=== PATIENT | male | born 1970 | race Caucasian/White ===

== ENCOUNTER 2019-06-04 00:22 | Emergency (ER) | payer OTHER ==
[2019-06-04] MEDS ORDERED: Cyclobenzaprine 10 MG TAB ONE (00:46)
[2019-06-04] MEDS ORDERED: Morphine 4 MG/ML VIAL ONE (00:46)
== END 2019-06-04 01:10 | disposition home or self-care (01) ==
LOC: SCSER 00:22
DX: M54.42 Lumbago with sciatica, left side (principal)
CPT/HCPCS: 96372; 99283; J2270

== ENCOUNTER 2019-06-09 08:33 | Outpatient (CLI) | payer OTHER ==
--- NOTE | 2019-06-09 09:29 | MRI ---
MRI Lumbar Spine Noncontrast: HISTORY: Lumbar radiculopathy. Patient complains of low back pain with pain radiating down left leg. Symptoms of been present for one week. COMPARISON: None FINDINGS: The visualized retroperitoneal structures demonstrate a normal appearance. Conus medullaris is normal in morphology and terminates at the T12-L1 level. A subcentimeter rounded focus of increased T1 and T2-weighted signal intensity seen in the T12 verteb ral body likely due to a small hemangioma. L1-2: There is loss of intervertebral disc height. Broad-based disc osteophyte complex is present wit h mild facet hypertrophic changes. There is mild effacement of the anterior aspect of thecal sac. The neural foramina are patent. L2-3: There is loss of intervertebral disc height. Endplate degenerative changes are present at this level. A broad-based disc osteophyte complex is present with mild facet degenerative changes. There is mild generalized narrowing of the central spinal canal with mild left-sided neural foraminal narro wing. The right neural foramen is patent. L3-4: There is a broad-based disc osteophyte complex and mild facet degenerative changes. Findings re sult in mild generalized narrowing of the central spinal canal. No significant neural foraminal narrowing is present. L4-5: There is mild loss of intervertebral disc height. There is a broad-based disc osteophyte comple x with a left central and paracentral disc extrusion. Disc material is seen posterior to the superior endplate of the L5 vertebral body. There is [id number] narrowing of the central spinal canal with narrowing of the left lateral recess. This extrusion results in prominent mass effect on the left anterolateral aspect of the thecal sac and also results in mass effect on the traversing left L5 nerve root within the subarticular zone. Mild bilateral neural foraminal narrowing is present. L5-S1: There is loss of intervertebral disc height. There is a broad-based disc osteophyte complex pr esent. No significant narrowing of the central spinal canal, but there is moderate right and mild to moderate left-sided neural foraminal narrowing primarily related to bony encroachment due to facet degenerative changes especially on the right. IMPRESSION: Multilevel degenerative changes in the lumbar spine greatest at the L4-5 level where there is a broad -based disc osteophyte complex with superimposed central and left paracentral disc extrusion with disc material seen posterior to the L5 vertebral body in the subarticular zone on the left. This does result in mass effect on the traversing left L5 nerve root. Correlation for left L5 radiculopathy is suggested.
== END 2019-06-09 08:34 | disposition home or self-care (01) ==
LOC: MRI 08:33
PROVIDERS: ATTEND Neurological Surgery
DX: M47.26 Other spondylosis with radiculopathy, lumbar region (principal); M25.78 Osteophyte, vertebrae; M51.16 Intervertebral disc disorders with radiculopathy, lumbar region
CPT/HCPCS: 72148

== ENCOUNTER 2019-06-16 17:35 | Emergency (ER) | payer OTHER ==
[2019-06-16] MEDS ORDERED: Ibuprofen 200 MG TAB ONE (17:59)
[2019-06-16 18:10] LABS: #Basophils 0.1 thou/uL (0.0-0.2); #Eosinphils 0.1 thou/uL (0.0-0.7); #Lymphocytes 1.9 thou/uL (1.20-3.40); #Monocytes 0.7 thou/uL (0.11-0.59); #Neutrophils 4.5 thou/uL (1.40-6.50); %Basophils 0.9 % (0.0-1.0); %Eosinophils 1.5 % (0.0-10.0); %Lymphocytes 26.2 % (21.0-51.0); %Monocytes 9.7 % (0.0-10.0); %Neutrophils 61.8 % (42.0-75.0); Hemoglobin 15.6 g/dL (14.0-18.0); Mean Corpuscular HGB CONC 34.1 g/dL (32.0-36.0); Mean Corpuscular Hemoglobin 30.7 pg (27.0-31.0); Mean Corpuscular Volume 89.9 fL (78.0-98.0); Mean Platelet Volume 7.7 fL (7.4-10.4); Platelet Count 263 thou/uL (130-400); RBC Distribution Width 12.2 % (11.5-14.5); Red Blood Cell (RBC) Count 5.09 mill/uL (4.70-6.10); White Blood Cell (WBC) Count 7.4 thou/uL (4.8-10.8)
[2019-06-16 18:30] LABS: ALT (SGPT) 19 U/L (8-55); AST (SGOT) 23 U/L (5-34); Albumin 4.4 g/dL (3.5-5.0); Alkaline Phosphatase 63 U/L (40-110); Anion Gap 13 mmol/L (10-20); BUN (Urea Nitrogen) 19 mg/dL (8.9-20.6); Bilirubin, Total 0.6 mg/dL (0.2-1.2); Calc. Creatinine Clearance 0 mL/min (70-130); Calcium 9.6 mg/dL (7.8-10.44); Carbon Dioxide 30 mmol/L (22-29); Chloride 102 mmol/L (98-107); Estimated GFR-MDRD 80; Globulin 2.8 g/dL (2.4-3.5); Glucose 97 mg/dL (70-105); Potassium 4.8 mmol/L (3.5-5.1); Protein, Total 7.2 g/dL (6.0-8.3); Sodium 140 mmol/L (136-145)
--- NOTE | 2019-06-16 18:44 | ULT ---
US Venous Doppler Lt Unilat History: Pain and edema Comparison: None. Findings: Real-time grayscale, color, and spectral analysis of the left lower extremity venous system was performed. The common femoral, femoral, proximal portions greater saphenous and deep femoral veins as well as the popliteal and posterior tibial veins were interrogated. Normal flow, augmentation, and compression. Impression: No deep venous thrombosis.
[2019-06-16 19:02] LABS: Bilirubin Negative (Negative); Blood, Urine Negative (Negative); Clarity Clear (Clear); Glucose, Urine (Dipstick) Normal (Negative); Leukocyte Negative Leu/uL (Negative); Nitrite Negative (Negative); Protein, Urine (Dipstick) Negative (Neg-Trace); Urobilinogen Normal mg/dL (Less than 2)
== END 2019-06-16 19:54 | disposition home or self-care (01) ==
LOC: ERS 17:35
DX: S86.912A Strain of unspecified muscle(s) and tendon(s) at lower leg level, left leg, initial encounter (principal); X50.9XXA Other and unspecified overexertion or strenuous movements or postures, initial encounter
CPT/HCPCS: 36415; 80053; 81003; 85025; 85379

== ENCOUNTER 2019-06-17 14:55 | Outpatient (CLI) | payer OTHER ==
--- NOTE | 2019-06-17 16:07 | MRI ---
MRI OF THE LEFT KNEE PERFORMED WITHOUT CONTRAST ENHANCEMENT: 06/17/19 HISTORY: Knee pain, calf swelling. The anterior and posterior cruciate ligaments are intact. The medial as well as lateral menisci are normal in shape and appearance. The medial and lateral collateral ligaments and iliotibial band regions appear unremarkable. The patellar articular cartilage shows some minimal surface irregularity and some slight thinning to the medial facet articular cartilage. There is suggestion of perhaps some minimal fissuring near the apex of the patella. The medial and lateral patellar retinaculum and quadriceps and patellar tendons are normal. On the lower most slices, there is some slight edema change at the peroneus longus muscle along the p roximal fibular shaft. IMPRESSION: 1. No evidence of meniscal or cruciate ligament injury. 2. Suggestion of some very mild edema change of the very proximal peroneus longus muscle. This r aises the possibility of some mild grade I muscle strain. 3. Mild articular cartilage loss of the medial facet of the patella. POS: TPC
--- NOTE | 2019-06-17 16:45 | MRI ---
MRI OF LEFT TIBIA AND FIBULA PERFORMED WITHOUT CONTRAST ENHANCEMENT: 06/17/19 HISTORY: Calf pain. Marrow signal change within the tibia and fibula are normal. No signs of any stress type reaction. Once again, some minimal edema change associated at the proximal peroneus longus muscle are seen whic h could indicate some mild strain. There is small superficial varicosities present. Venous structures are somewhat difficult to assess. There was a negative venous ultrasound for DVT. I think these changes are just related to the flow ph enomenon within the magnetic field. Findings were reviewed with Dr. Saenz who agrees. Moderate Achilles tendinosis is noted. IMPRESSION: 1. Achilles tendinosis with a thickened Achilles tendon. 2. Mild edema changes involving the proximal peroneus longus muscle suggesting some mild strain. POS: TPC
== END 2019-06-17 14:56 | disposition home or self-care (01) ==
LOC: MRI 14:55
PROVIDERS: ATTEND Orthopaedic Surgery
DX: M79.89 Other specified soft tissue disorders (principal); M25.562 Pain in left knee; M79.662 Pain in left lower leg; R60.0 Localized edema; M76.62 Achilles tendinitis, left leg

== ENCOUNTER 2019-06-26 08:36 | Day surgery (SDC) | payer OTHER ==
[2019-06-25 15:50] VITALS: BMI 25.7
--- NOTE | 2019-06-25 21:58 | HP ---
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 He has had this ongoing for several weeks now with an MRI performed at [place] revealing the L4 disk herniation with inferior migration and impinges upon the descending L5 nerve root. He has treated this with variable modalities, including therapy, injections, and medications. He is currently taking over the counter anti-inflammatories. He has considered his options over the course of the last several weeks would like to move forward with surgical intervention at this time. PAST MEDICAL HISTORY: Significant for no major medical problems. PAST SURGICAL HISTORY: Tonsillectomy and left psoas tendon repair. CURRENT MEDICATIONS: None. ALLERGIES: NO KNOWN DRUG ALLERGIES. PHYSICAL EXAMINATION: GENERAL: The patient is alert and oriented x3. NEUROLOGIC: Gait is mildly antalgic. Lower extremity motor exam; mild dorsiflexion weakness to the left ankle and foot. ASSESSMENT: Left lower extremity motor weakness, lumbar radiculopathy, lumbar disk herniation. PLAN: Dr. Trinidad met with the patient, reviewed imaging, and advocated for left L4 diskectomy. He explained to Dr. Lauren the risks, benefits, and alternatives to the procedure. He expressed understanding and elected to move forward with surgery as discussed. I do believe the patient is mentally competent and capable of making medical decisions for himself. We will move forward with surgery as planned. Job ID: [id number]
[2019-06-26] MEDS ORDERED: Fentanyl 100 MCG/2 ML VIAL ONE ×2 (09:29→11:45)
[2019-06-26] MEDS ORDERED: Thrombin 5000 UNITS/5 ML VIAL ONE (09:33)
[2019-06-26] MEDS ORDERED: Bupivacaine HCl 0.5%/Epinephrine 1:200,000/PF 30 ml Vial ONE (09:33)
[2019-06-26] MEDS ORDERED: Tamsulosin HCl 0.4 MG CAP ONE (11:45)
--- NOTE | 2019-06-26 11:58 | OP ---
DATE OF PROCEDURE: 06/26/2019 [facility] OPERATOR: Dennis Cancino PA-C. INDICATION: Pain, numbness, and weakness. DIAGNOSIS: Lumbar radiculopathy. PROCEDURE PERFORMED: Left L4 diskectomy. ANESTHESIA: General. DESCRIPTION OF PROCEDURE: The patient was brought into the operating room and placed under general anesthesia. He was flipped from the supine to prone position on the operating room table. A linear incision was planned over the L4-L5 segment. After prepping and draping and after an appropriate perioperative pause, the incision was created. The soft tissues were swept left of midline. A self-retaining retractor was placed in the wound for optimal exposure. After confirming the appropriate level with C-arm fluoroscopy, high-speed cutting drill bit as well as 2, 3, and 4 mm Kerrisons were used to perform a laminectomy along the inferior aspect of L4 and the superior aspect of L5. The descending L5 nerve root was identified as was a very large protuberant extruded disk mass beneath the nerve root. This was carefully removed using pituitary rongeur and Kerrisons. Several very large disk fragments were identified and inferior to the disk space and all were removed until the descending nerve roots were well decompressed. The wound was then irrigated. Hemostasis was maintained throughout. The wound was then closed in anatomic layers and a pressure dressing was applied. There were no known procedural complications. Job ID: [id number]
[2019-06-26] MEDS ORDERED: Ondansetron PF 4 MG/2 ML Vial ONE (12:54)
[2019-06-26] MEDS ORDERED: Morphine 2 MG/ML SYRINGE ONE (12:55)
[2019-06-26] MEDS ORDERED: Promethazine HCl 25 MG/ML VIAL ONE (13:15)
[2019-06-26] MEDS ORDERED: Acetaminophen/Codeine 30-300mg Tablet ONE ×2 (15:06→15:43)
--- NOTE | 2019-06-29 23:06 | EKG ---
Test Reason : PREOP Blood Pressure : / mmHG Vent. Rate : 054 BPM Atrial Rate : 054 BPM P-R Int : 176 ms QRS Dur : 104 ms QT Int : 412 ms P-R-T Axes : 075 055 030 degrees QTc Int : 390 ms Sinus bradycardia Otherwise normal ECG No previous ECGs available Confirmed by JAMIE KNOX M.D. ([id number]) on 06/29/2019 11:05:42 PM Referred By: JAMIR Confirmed By:JAMIE KNOX M.D.
== END 2019-06-26 15:50 | disposition home or self-care (01) ==
LOC: SDC 08:36
PROVIDERS: ATTEND Neurological Surgery
PROC: 0ST20ZZ Resection of Lumbar Vertebral Disc, Open Approach (ICD-10-PCS; principal; 2019-06-26)
DX: M51.16 Intervertebral disc disorders with radiculopathy, lumbar region (principal)
CPT/HCPCS: 76000; 93005; 93010; J0670; J0690; J2270; J2405; J2550; J3010

== ENCOUNTER 2019-09-25 11:10 | Outpatient (CLI) | payer OTHER ==
[~2019-09-25 11:10] MED LIST: Magnevist 469MG/ML 20 ML VIAL ONE
--- NOTE | 2019-09-25 14:37 | MRI ---
MRI LUMBAR SPINE WITH AND WITHOUT CONTRAST: HISTORY: Previous lumbar surgery. Numbness and tingling in the left leg. Lumbar radiculopathy. COMPARISON: 06/09/2019. TECHNIQUE: MRI lumbar spine is performed with and without intravenous gadolinium administration. Multisequential , multiplanar imaging is performed. FINDINGS: Appropriate T1 marrow signal intensity of the lumbar vertebrae. Lumbar spine vertebral body height is maintained. No fracture. No significant STIR hyperintensity to suggest vertebral body edema or ligamentous injury. Appropriate signal intensity of visualized paraspinal muscles and solid organs. Postcontrast images do not demonstrate any abnormal enhancement of the thecal sac including the cauda equina and conus medullaris. No abnormal enhancement of the vertebral bodies. Conus medullaris terminates at the mid T12 level. T12-L1: Adequate disc hydration. No significant central canal stenosis or significant neural foramina l narrowing. L1-L2: Adequate disc hydration. Minimal left and right paracentral disc bulges do encroach upon both subarticular zones. There is contact upon both traversing L2 nerve roots. The overall degree of central canal stenosis is minimal and unchanged. Bilaterally, the neural foramina are patent. L2-L3: Disc desiccation with moderate loss of disc space height. Broad-based disc bulge with a left s ubarticular disc protrusion. Overall there is mild stenosis of the thecal sac. There is partial obscuration the traversing left L3 nerve root secondary to disc material. The overall degree of left subarticular zone stenosis and mass effect upon the traversing left L3 nerve root is unchanged. Mild right and [id number] left neural foraminal narrowing. Degree of foraminal stenosis is unch anged. L3-L4: Adequate disc hydration. Broad-based disc bulge, ligament flavum thickening and facet hypertro phy result in mild central canal stenosis. The degree of central canal stenosis is unchanged. Bilaterally the neural foramina are patent. L4-L5: There is a left hemilaminotomy defect. Broad-based disc bulge abuts the thecal sac. Minimal li gament flavum thickening and facet hypertrophy. Overall there is mild central canal stenosis. The previously noted disc material left subarticular zone causing obscuration of the traversing left L5 n erve root as well as narrowing of the thecal sac has resolved. Postcontrast images demonstrate enhancing scar tissue at the laminectomy defect site, as well as in the left subareolar zone. Scar ti ssue does encompass the traversing left L5 nerve root. No significant disc material is noted in the left subarticular zone. Stable mild to moderate bilateral neural foraminal narrowing. L5-S1: Disc desiccation with stable moderate loss of disc space height. There is a broad-based disc b ulge that abuts the thecal sac. There is a T2 and STIR hyperintense focus along the posterior margin of the disc with associated enhancement, compatible with an annular fissure. Annular fissure a ppears to have developed since the previous examination. There is associated minimal central/left subarticular disc bulge with a component of the annular fissure abutting the traversing left S1 nerve root. No significant stenosis of the thecal sac. Moderate bilateral neural foraminal narrowing, unchanged. IMPRESSION: 1. Postsurgical changes at the L4-L5 level. Interval removal of the previously noted disc material in the left subarticular zone. There is enhancing scar tissue of the left hemilaminotomy defect site and in the left subarticular zone, encompassing the traversing left L5 nerve root. No significant res idual disc material. 2. Findings suggesting interval development of a subtle annular fissure along the posterior margin of the L5-S1 disc. This annular fissure does abut the left subarticular zone, specifically the traversing left S1 nerve root. Transcribed Date/Time: 09/25/2019 2:59 PM
== END 2019-09-25 11:11 | disposition home or self-care (01) ==
LOC: BICMRI 11:10
PROVIDERS: ATTEND Neurological Surgery
DX: M54.16 Radiculopathy, lumbar region (principal); Z98.890 Other specified postprocedural states
CPT/HCPCS: 72158

== ENCOUNTER 2020-04-01 09:49 | Emergency (ER) | payer OTHER ==
[2020-04-02 12:44] LABS: SARS-CoV-2 MS2 Positive; SARS-CoV-2 N Gene Negative; SARS-CoV-2 S Gene Negative; SARS-CoV-2 by NAA Not Detected (NotDetected); SARS-CoV-2 orf1ab Negative
== END 2020-04-01 10:09 | disposition home or self-care (01) ==
LOC: ER/OP 09:49
DX: Z53.21 Procedure and treatment not carried out due to patient leaving prior to being seen by health care provider (principal)
CPT/HCPCS: 87635; U0003